=== PATIENT | male | born 1980 | race Two or more races ===

== ENCOUNTER 2018-06-10 16:47 | Emergency (ER) | payer OTHER ==
[2018-06-10 17:02] VITALS: BP 147/89; PULSE 70; TEMP 98.2; BMI 31.0
[2018-06-10] MEDS ORDERED: KETOROLAC TROMETHAMINE 15 MG/ML VIAL IM ONE (18:07)
[2018-06-10] MEDS ORDERED: diazePAM 2 MG TABLET PO ONE (18:07)
[2018-06-10] MEDS ORDERED: diazePAM 2 MG TABLET ONE (18:10)
[2018-06-10] MEDS ORDERED: KETOROLAC TROMETHAMINE 30 MG/1 ML VIAL ONE (18:10)
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
== END 2018-06-10 19:54 | disposition home or self-care (01) ==
LOC: JERFT 16:47
PROC: 3E0233Z Introduction of Anti-inflammatory into Muscle, Percutaneous Approach (ICD-10-PCS; principal; 2018-06-10)
DX: M54.5 Low back pain (principal); V43.52XA Car driver injured in collision with other type car in traffic accident, initial encounter; W22.11XA Striking against or struck by driver side automobile airbag, initial encounter; Y92.414 Local residential or business street as the place of occurrence of the external cause; Y93.89 Activity, other specified; Y99.8 Other external cause status; J45.909 Unspecified asthma, uncomplicated; K21.9 Gastro-esophageal reflux disease without esophagitis
CPT/HCPCS: 71045-TC-FY; 72100-TC-FY; 73560-TC-LT-FY; 99281-25